=== PATIENT | male | born 1960 | race Caucasian/White ===

== ENCOUNTER → 2016-10-13 | Outpatient (CLI) | payer OTHER ==
[2016-02-11 11:54] VITALS: BP 150/96
[~2016-10-13] MED LIST: ADVAIR 100/28 DISKU1 INH; CIALIS20 MG PO; LOSARTAN POTASS1 TA1 PO; OMEPRAZOLE40 MG PO; PROAIR RESPICL90 MCG INH
== END ==
LOC: LAB 15:32
DX: I10 Essential (primary) hypertension (principal)

== ENCOUNTER 2016-11-14 15:45 | Outpatient (RCR) | payer OTHER ==
[2016-02-11 11:54] VITALS: BP 150/96
== END 2017-01-04 | disposition home or self-care (01) ==
LOC: PT
DX: M75.42 Impingement syndrome of left shoulder (principal)

== ENCOUNTER 2016-12-21 16:00 | Outpatient (RCR) | payer OTHER ==
[2016-02-11 11:54] VITALS: BP 150/96
== END 2017-01-10 11:43 | disposition home or self-care (01) ==
LOC: PT 16:00
DX: M25.512 Pain in left shoulder (principal)

== ENCOUNTER → 2017-03-05 | Outpatient (CLI) | payer OTHER ==
[~2017-03-05] VITALS: Ht 177.8 cm; Wt 121.4 kg
[2017-03-05 08:30] VITALS: BP 107/70
[2017-03-05 08:32] LABS: HEMATOCRIT 46.3 % (42.0-52.0); HEMOGLOBIN 15.4 g/dL (13.5-18.0); MEAN CELL VOLUME 80 fl (78-100); MEAN CORPUSCULAR HEMOGLOBIN 27 pg (27-31); MEAN CORPUSCULAR HGB CONC 33 g/dL (33-37); MEAN PLATELET VOLUME 8.5 fl (7.4-10.4); PLATELET COUNT 278 K/mm3 (130-400); RED BLOOD COUNT 5.82 M/mm3 (4.20-5.60); RED CELL DISTRIBUTION WIDTH 14.1 % (11.5-14.5); WHITE BLOOD COUNT 9.7 K/mm3 (4.8-10.8)
[2017-03-05 09:13] LABS: BUN/CREATININE RATIO 12.2 (6.0-26.0); POTASSIUM 3.3 mmol/L (3.6-5.0); TOTAL BILIRUBIN 0.7 mg/dL (0.2-1.3); TOTAL PROTEIN 7.4 g/dL (6.3-8.2)
[2017-03-05 09:22] LABS: LYMPHOCYTE 9 % (20-51); MONOCYTE 9 % (3-10); NEUTROPHILS 81 % (42-75)
--- NOTE | 2017-03-05 10:30 | NUR ---
Berny MARIE RECEIVING LEAD IN WITH PATIENT. REPORTS PATIENT CAN LEAVE ONCE DONE WITH IV FUIDS NO NEED TO MAKE PATIENT WAIT UNTIL ABLE TO COLLECT UA.
[2017-03-05 10:52] VITALS: BP 122/71
== END ==
LOC: AMSURD 07:55
PROVIDERS: Nurse Practitioner Primary Care
DX: E86.0 Dehydration (principal); R19.7 Diarrhea, unspecified
CPT/HCPCS: J2405; J7120

== ENCOUNTER → 2018-05-06 | Outpatient (CLI) | payer OTHER ==
[2017-03-05 10:52] VITALS: BP 122/71
== END ==
LOC: RAD 08:01
DX: R05 Cough (principal)

== ENCOUNTER → 2020-12-10 | Outpatient (CLI) | payer OTHER ==
[2020-12-10 08:32] LABS: BASO # 0.03 (0.02-0.10); EOS % 2.1 % (0.0-4.0); HEMATOCRIT 48.4 % (42.0-52.0); HEMOGLOBIN 15.1 g/dL (13.5-18.0); LYMPH# 1.92 (1.50-4.00); MEAN CELL VOLUME 86 fl (78-100); MEAN CORPUSCULAR HEMOGLOBIN 27 pg (27-31); MEAN CORPUSCULAR HGB CONC 31 g/dL (33-37); MEAN PLATELET VOLUME 8.7 fl (7.4-10.4); MONO # 0.71 (0.20-0.80); NEU # 6.52 (1.40-6.50); PLATELET COUNT 255 K/mm3 (130-400); RED BLOOD COUNT 5.63 M/mm3 (4.20-5.60); RED CELL DISTRIBUTION WIDTH 13.4 % (11.5-14.5); WHITE BLOOD COUNT 9.5 K/mm3 (4.8-10.8)
[2020-12-10 08:50] LABS: ALBUMIN 3.9 g/dL (3.4-4.8); POTASSIUM 4.4 mmol/L (3.5-5.1)
[2020-12-10 08:52] LABS: TOTAL PROTEIN 7.1 g/dL (6.2-8.1)
[2020-12-10 08:54] LABS: TOTAL BILIRUBIN 0.4 mg/dL (0.2-1.2)
[2020-12-10 10:00] LABS: ERYTHROCYTE SEDIMENTATION RATE 14 mm/hr (0-20)
== END ==
LOC: LAB 07:58
PROVIDERS: Internal Medicine
DX: Z12.11 Encounter for screening for malignant neoplasm of colon (principal); Z12.5 Encounter for screening for malignant neoplasm of prostate

== ENCOUNTER → 2021-01-06 | Outpatient (CLI) | payer OTHER | LOC: LAB 09:26 | DX: R97.8 Other abnormal tumor markers (principal) ==

== ENCOUNTER → 2021-04-04 | Outpatient (CLI) | payer OTHER | LOC: LAB 14:51 | DX: Z20.822 Contact with and (suspected) exposure to COVID-19 (principal) ==

== ENCOUNTER → 2021-09-06 | Outpatient (CLI) | payer OTHER | LOC: LAB 13:03 | DX: U07.1 COVID-19 (principal) ==

== ENCOUNTER → 2021-09-09 | Outpatient (CLI) | payer OTHER ==
[~2021-09-09] VITALS: Ht 177.8 cm; Wt 121.4 kg
[2021-09-09 11:30] VITALS: BP 128/73
[2021-09-09 11:45] VITALS: BP 119/83
[2021-09-09 12:00] VITALS: BP 122/73
[2021-09-09 12:15] VITALS: BP 123/76
[2021-09-09 12:30] VITALS: BP 122/72
== END ==
LOC: AMSURD 08:04
DX: Z51.81 Encounter for therapeutic drug level monitoring (principal); U07.1 COVID-19
CPT/HCPCS: M0222; Q0222

== ENCOUNTER → 2022-05-02 | Outpatient (CLI) | payer OTHER ==
[~2022-05-02] MED LIST changes: +GLIMEPIRIDE2 M1 PO; +GOOD NEIGHBOR M25 M1 PO; +OZEMPIC1 MG/0.71 SQ
== END ==
LOC: RAD 13:43
DX: R05.9 Cough, unspecified (principal)

== ENCOUNTER 2023-02-07 11:52 | Emergency (ER) | payer OTHER ==
[~2023-02-07] VITALS: Ht 177.8 cm; Wt 110.9 kg
[~2023-02-07 11:52] MED LIST changes: -GLIMEPIRIDE2 M1 PO; -GOOD NEIGHBOR M25 M1 PO; -OZEMPIC1 MG/0.71 SQ
[2023-02-07] MEDS ORDERED: OZEMPIC1 MG/0.71 SQ (12:05)
[2023-02-07] MEDS ORDERED: GOOD NEIGHBOR M25 M1 PO (13:28)
[2023-02-07] MEDS ORDERED: GLIMEPIRIDE2 M1 PO (13:28)
[2023-02-07 14:11] VITALS: BP 134/80
== END 2023-02-07 14:13 | disposition home or self-care (01) ==
LOC: ED 11:52
DX: H53.2 Diplopia (principal); E11.9 Type 2 diabetes mellitus without complications; E66.9 Obesity, unspecified; Z79.84 Long term (current) use of oral hypoglycemic drugs; Z68.35 Body mass index [BMI] 35.0-35.9, adult